=== PATIENT | male | born 1985 | race Caucasian/White ===

== ENCOUNTER 2017-06-30 14:23 | Emergency (ER) | payer OTHER ==
[2017-06-30] MEDS ORDERED: ASPIRIN 81 MG PO STA (14:54)
[2017-06-30] MEDS ORDERED: NITROGLYCERIN OINT 1 INCH/GM PACKET TOPICAL STA (14:54)
[2017-06-30] MEDS ORDERED: ACETAMINOPHEN TAB 500 MG TAB PO STA (14:59)
[2017-06-30 15:11] LABS: Basophils # (A) 0.1 k/uL (0-0.2); Basophils % (A) 1 %; CH 30.7; CHCM 33.8; Eosinophils # (A) 0.1 k/uL (0-0.7); Eosinophils % (A) 1 %; HCT 51.8 % (39.0-53.0); HDW 2.31; HGB 17.6 gm/dL (13.0-17.5); Luc # (Auto) 0.28; Luc % (Auto) 3; Lymphocytes # (A) 1.8 k/uL (1.0-4.8); Lymphocytes % (A) 16 %; MCHC 33.9 g/dL (31.0-37.0); MCV 91.3 fL (80.0-100.0); Mean Platelet Volume 6.9; Monocytes # (A) 0.7 k/uL (0-1.0); Monocytes % (A) 6 %; Neutrophils # (A) 8.1 k/uL (1.3-7.7); Neutrophils % (A) 74 %; RBC 5.68 m/uL (4.30-5.90); WBC (Perox) 11.37
--- NOTE | 2017-06-30 15:23 | XR ---
EXAMINATION TYPE: XR chest 2V DATE OF EXAM: 06/30/2017 COMPARISON: NONE TECHNIQUE: PA and lateral views submitted. HISTORY: Shortness of breath and chest pain FINDINGS: The lungs are clear and there is no pneumothorax, pleural effusion, or focal pneumonia. IMPRESSION: 1. No acute process.
[2017-06-30 15:25] LABS: ALT 48 U/L (21-72); AST 36 U/L (17-59); Alkaline Phosphatase 63 U/L (38-126); Anion Gap 14 mmol/L; Blood Urea Nitrogen 12 mg/dL (9-20); Calcium 9.8 mg/dL (8.4-10.2); Carbon Dioxide 22 mmol/L (22-30); Chloride 104 mmol/L (98-107); Glucose 92 mg/dL (74-99); Magnesium 2.2 mg/dL (1.6-2.3); Non-African American GFR(MDRD) >60 (>60 ml/min/1.73 sqM); Potassium 4.8 mmol/L (3.5-5.1); Sodium 140 mmol/L (137-145); Total Bilirubin 1.2 mg/dL (0.2-1.3); Total Protein 8.6 g/dL (6.3-8.2)
[2017-06-30 15:29] LABS: INR 1.1 (<1.2); Partial Thromboplastin Time 25.3 sec (22.0-30.0); Prothrombin Time 10.8 sec (9.0-12.0)
[2017-06-30 15:30] LABS: Creatine Kinase 76 U/L (55-170)
[2017-06-30 15:43] LABS: Creatine Kinase MB 0.2 ng/mL (0.0-2.4); Troponin I <0.012 ng/mL (0.000-0.034)
[2017-06-30] MEDS ORDERED: hydrALAZINE HCL 20 MG/ML 1 ML VIAL IVP STA (15:48)
--- NOTE | 2017-06-30 15:51 | ED ---
Chest Pain HPI - General Chief Complaint: Chest Pain Stated Complaint: blood pressure problems Time Seen by Provider: 06/30/17 14:37 Source: patient Mode of arrival: ambulatory Limitations: no limitations - History of Present Illness Initial Comments: 31 years old male resents with the chest pain ongoing for the lost 4 days it has been off-and-on right nail he has no chest pain but does about half an hour ago he had a chest and his blood pressure been quite high blood pressure was 188 /107. He is blood pressure been on for the last 5 years is been told to keep an eye on it and also complaining about shortness of breath and shortness of breath gets worse with a minimal exertion he said chest pain gets worse with deep breaths he has been smoking for about a past 15 years he denies any alcohol he had some alcohol over the last few days when he was rate is. He does have a family history of high blood pressure his dad has high blood pressure - Related Data Previous Rx's Medication Instructions Recorded Albuterol Inhaler [Ventolin Hfa 2 puff INHALATION Q6HR PRN #1 06/30/17 Inhaler] inhaler Allergies Allergy/AdvReac Type Severity Reaction Status Date / Time No Known Allergies Allergy Verified 06/30/17 15:11 Review of Systems ROS Statement: Those systems with pertinent positive or pertinent negative responses have been documented in the HPI. ROS Other: All systems not noted in ROS Statement are negative. EKG Findings - EKG Comments: EKG Findings:: History PER RECORDED VENTRICULAR RATE IS 57 NV INTERVAL IS 162 QRS DURATION IS 120/QTC C IS 422/410 REVIEW CC EKG DOES NOT REVEAL ANY ST ELEVATION OR ST DEPRESSION Past Medical History Past Medical History: Hypertension Additional Past Medical History / Comment(s): kidney stones History of Any Multi-Drug Resistant Organisms: None Reported Past Surgical History: No Surgical Hx Reported Past Psychological History: No Psychological Hx Reported Smoking Status: Current every day smoker Past Alcohol Use History: Daily Past Drug Use History: None Reported General Exam - General Exam Comments Initial Comments: General: The patient is awake and alert, in no distress, and does not appear acutely ill. Skin: Skin is warm and dry and no rashes or lesions are noted. Eye: Pupils are equal, round and reactive to light, extra-ocular movements are intact; there is normal conjunctiva bilaterally. Ears, nose, mouth and throat: There are moist mucous membranes and no oral lesions. Neck: The neck is supple, there is no tenderness or JVD. Cardiovascular: There is a regular rate and rhythm. No murmur, rub or gallop is appreciated. Respiratory: To auscultation bilateral, no wheezing no rhonchi no distress respiratory robb noticed Gastrointestinal: Soft, non-distended, non-tender abdomen without masses or organomegaly noted. There is no rebound or guarding present. Bowel sounds are unremarkable. Back: There is no tenderness to palpation in the midline. There is no obvious deformity. Musculoskeletal: Normal ROM, no tenderness, There is no pedal edema. There is no calf tenderness or swelling. No cords were appreciated. Neurological: CN II-XII intact, Cranial nerves III through XII are intact. There are no obvious motor or sensory deficits. Coordination appears grossly intact. Speech is normal. Psychiatric: Cooperative, appropriate mood & affect, normal judgment. Limitations: no limitations Course Vital Signs 06/30/17 06/30/17 06/30/17 14:25 14:57 15:16 Temperature 97.9 F 98.7 F Pulse Rate 72 72 72 Respiratory 16 17 20 Rate Blood Pressure 150/92 162/107 156/99 O2 Sat by Pulse 97 99 98 Oximetry 06/30/17 16:25 Temperature Pulse Rate 58 L Respiratory 18 Rate Blood Pressure 138/83 O2 Sat by Pulse 97 Oximetry Patient was reassessed at 1645 this EKG is within normal range, troponin, comprehensive metabolic panel, CBC, chest x-ray, d-dimer all within normal range his blood pressure initially was high 180s systolic he was watched over 2 hours his blood pressure systolic is 138 now and I explained the patient that this is this is not too bad he didn't need to be treated the need to monitor his blood pressure once daily for next 10 day's and then see his family doctor as well as chest pain is concerned I wanted to see [facility] and I did notice some wheezing in his breathing or pulmonary. All inhaler Disposition Clinical Impression: Chest pain, Hypertension Disposition: HOME SELF-CARE Condition: Good Instructions: Chest Pain (ED) Prescriptions: Albuterol Inhaler [Ventolin Hfa Inhaler] 2 puff INHALATION Q6HR PRN #1 inhaler PRN Reason: sob Referrals: None,Stated [Primary Care Provider] - 1-2 days Beth Lind MD [STAFF PHYSICIAN] - 1-2 days
[2017-06-30 17:05] VITALS: BP 127/74; PULSE 60; RESP 16; TEMP 98.1
== END 2017-06-30 17:14 | disposition home or self-care (01) ==
LOC: EC 14:23
DX: I10 Essential (primary) hypertension (principal); R07.9 Chest pain, unspecified; F17.200 Nicotine dependence, unspecified, uncomplicated
CPT/HCPCS: 36415; 71020; 80053; 82550; 82553; 83735; 83880; 84484; 85025; 85379; 85610; 85730; 93005; 99285

== ENCOUNTER 2018-02-20 12:01 | Day surgery (SDC) | payer OTHER ==
[2018-02-19 08:21] VITALS: BMI 30.8
[~2018-02-20 12:01] MED LIST: LACTATED RINGERS 1,000 ML IV SCH
[2018-02-20 12:14] VITALS: RESP 18; TEMP 97
[2018-02-20] MEDS ORDERED: LIDOCAINE 1% 20 ML VIAL (10MG/ML) FOR IV START INTRADERMA ONE (12:16)
[2018-02-20] MEDS ORDERED: LIDOCAINE 1% INJ 10MG/ML (20 ML MDV) ONE (12:23)
[2018-02-20] MEDS ORDERED: PROPOFOL 10 MG/ML 20 ML VIAL IV ONE (12:23)
[2018-02-20] MEDS ORDERED: fentaNYL (PF) 50 MCG/ML 2 ML AMP ONE (12:23)
--- NOTE | 2018-02-20 12:41 | P.PCN ---
Date of Procedure: 02/20/18 Procedure(s) Performed: Procedure: Esophagogastroduodenoscopy and biopsy. Preoperative diagnosis: Epigastric pain and atypical chest pain and reflux. Postoperative diagnosis: 1. Small sliding hiatal hernia with no obvious esophagitis or complicated reflux disease. 2. Mild antral gastritis. 3. Multiple biopsies obtained from the duodenum, antrum and esophagus. Preparation and sedation: Was provided by anesthesia. Brief clinical history: The patient is a 32-year-old male who is scheduled for this evaluation for the above reasons. Apparently, this all started in June 2017 when he was at [place] and he consumed alcohol excessively and has not been feeling the same since. He tried PPI for various periods of time with inconsistent improvement with recurrence of his symptoms. No alarm symptoms or anemia. This evaluation is to assess for esophagitis or other pathology. Procedure: With the patient on his left lateral decubitus position and after informed consent and adequate sedation, I passed the Olympus-GIF 160 video upper endoscope through the cricopharyngeus down the esophagus. GE junction was around 38-40 cm from the incisors. There was a small sliding hiatal hernia but no obvious esophagitis or complicated reflux disease. The endoscope was then passed into the stomach which was insufflated with air and inspected in detail including the retroflex view in the cardia. There was some mottling and erythema in the antrum but no ulcers or erosions. Pyloric channel, duodenal bulb, post bulbar area and descending duodenum appeared within normal limits. Because of his symptoms, I obtained biopsies from the duodenum, antrum and esophagus then the endoscope was withdrawn. The patient tolerated the procedure well. Plan: The patient was reassured. Will await biopsy results and make further plans based on his course and biopsy results. I will keep you updated on his progress. He will follow up with you as planned.
[2018-02-20 12:58] VITALS: BP 133/89; PULSE 50
== END 2018-02-20 13:20 | disposition home or self-care (01) ==
LOC: ORWHC2ENDO 12:01
DX: K44.9 Diaphragmatic hernia without obstruction or gangrene (principal); K29.50 Unspecified chronic gastritis without bleeding; K22.8 Other specified diseases of esophagus; F17.210 Nicotine dependence, cigarettes, uncomplicated; F41.9 Anxiety disorder, unspecified; Z79.899 Other long term (current) drug therapy
CPT/HCPCS: 88305; 43239; J2001; J3010; J2704